=== PATIENT | male | born 1955 | race Caucasian/White ===

== ENCOUNTER 2021-12-29 08:43 | Outpatient (CLI) | payer MEDICARE, SELFPAY ==
--- NOTE | 2021-12-29 09:04 | USCV_ITS ---
Marco A Bryant Age: 66 Gender: M : 1955 Exam Date: 12/29/2021 09:37 Ordering Phys: Nikky Bains Technologist: Corbin Nash Exam Location: [facility] [place] Indication: Chronic combined systolic and diastolic heart failure. Aortic stenosis BP: 130 / 80 HR: 63 Rhythm: Sinus Technical Quality: Adequate MEASUREMENTS (Male / Female) Normal Values 2D ECHO LV Diastolic Diameter PLAX 3.4 cm 4.2 - 5.9 / 3.9 - 5.3 cm LV Systolic Diameter PLAX 2.4 cm IVS Diastolic Thickness 1.2 cm 0.6 - 1.0 / 0.6 - 0.9 cm IVS Systolic Thickness 1.4 cm LVPW Diastolic Thickness 1.5 cm 0.6 - 1.0 / 0.6 - 0.9 cm LVPW Systolic Thickness 1.8 cm LVOT Diameter 2.0 cm LV Ejection Fraction 2D Teich 57.5 % LV Ejection Fraction MOD 2C 54.9 % LV Ejection Fraction 2C AL 54.5 % LA Diameter 3.7 cm LA Width 3.2 cm LA Height 5.1 cm RA Width 3.6 cm RA Height 4.4 cm Aorta at Sinotubular Diameter 2.7 cm M-MODE Aortic Annulus Diameter 3.0 cm LA Ao Ratio MM 1.3 MV E Point Septal Separation 0.7 cm DOPPLER AV Peak Velocity 300.0 cm/s LVOT Peak Velocity 70.0 cm/s AV Area Cont Eq vti 0.8 cm squared AV Area Cont Eq pk 0.7 cm squared MV Area PHT 3.0 cm squared Mitral E to A Ratio 0.8 MV E' Velocity 38.0 cm/s Mitral E to MV E' Ratio 10.2 Mitral E to LV E' Lateral Ratio 10.5 Mitral E to LV E' Septal Ratio 10.1 Right Atrial Pressure 3.0 mmHg RV Acceleration Time 0.1 s RV Ejection Time 0.3 s RV AcT/ET 0.5 FINDINGS Left Ventricle Normal left ventricular cavity size and systolic function. Increased left ventricular wall thickness. Left ventricular ejection fraction is estimated at 60%. No diagnostic regional wall motion abnormality. Grade II diastolic dysfunction, moderately elevated filling pressures. Right Ventricle Normal right ventricular size and systolic function. RVSP could not be calculated due to incomplete tricuspid regurgitation velocity profile. Right Atrium Normal right atrial size. Left Atrium Mildly increased left atrial size. Mitral Valve Moderate mitral annular calcification. Mildly thickened mitral valve. No mitral valve stenosis. Trace mitral valve regurgitation. Aortic Valve Markedly thickened and calcified possibly trileaflet valve. Aortic stenosis visually appears to be severe. Possibly low- flow low gradient severe aortic stenosis with peak velocity 3 m/s, peak gradient 38 mmHg, mean gradient 18 mmHg. Aortic valve area by continuity equation of 1.1 cm2 and indexed aortic valve area of 0.4 cm2/m2. Tricuspid Valve Structurally normal tricuspid valve. No tricuspid valve stenosis. Trace tricuspid valve regurgitation. Pulmonic Valve Pulmonic valve not well visualized. Pericardium No pericardial effusion. Aorta Aorta not well visualized. CONCLUSIONS 1. Normal left ventricular cavity size and systolic function. Increased left ventricular wall thickness. Left ventricular ejection fraction is estimated at 60%. No diagnostic regional wall motion abnormality. Grade II diastolic dysfunction, moderately elevated filling pressures. 2. Normal right ventricular size and systolic function. 3. Markedly thickened and calcified trileaflet valve. Possibly low-flow low gradient severe aortic stenosis with peak velocity 3 m/s, peak gradient 38 mmHg, mean gradient 18 mmHg. Aortic valve area by continuity equation of 1.1 cm2 and indexed aortic valve area of 0.4 cm2/m2. Stroke-volume index of 25 ml/m2. 4. No prior similar studies to compare. 5. MUNDO may be considered for better assessment of aortic valve. Katharine Duffy MD (Electronically Signed) Final Date: 31 December 2021 17:07 S
== END 2021-12-29 08:44 | disposition home or self-care (01) ==
PROVIDERS: PCP Nurse Practitioner Family; Visit Provider Nurse Practitioner Family
DX: I50.42 Chronic combined systolic (congestive) and diastolic (congestive) heart failure (principal); I51.89 Other ill-defined heart diseases
CPT/HCPCS: 93306